=== PATIENT | female | born 1950 | race Caucasian/White ===

== ENCOUNTER 2018-07-01 12:12 | Inpatient (IN) ==
[2018-07-01 12:39] LABS: Basophils # 0.1 10*3/uL (0.0-0.2); Basophils % 0.7 % (0.0-0.8); Eosinophils # 0.3 10*3/uL (0.0-0.87); Eosinophils % 4.2 % (0.00-10.9); Hematocrit 40.6 VOL% (35.7-47.0); Hemoglobin 13.4 GM/DL (12.0-16.0); Immature Granulocytes % 0.3 %; Immature Granulocytes Absolute 0.02 #; Lymphocytes % 13.9 % (21.3-54.2); Mean Corpuscular Hemoglobin 31 PG (27-34); Mean Corpuscular Volume 93.8 FL (87-102); Mean Platelet Volume 10.2 FL (9.6-12.0); Monocytes # 0.5 10*3/uL (0.11-0.8); Monocytes % 6.6 % (1.7-12.7); Neutrophils # 5.3 10*3/uL (1.4-7.4); Neutrophils % 74.3 % (38.7-73.9); Platelet Count 149 T/CUMM (130-400); Red Blood Count 4.33 MC/CUMM (3.8-5.5); Red Cell Distribution Width 13.2 % (9.3-17.3); White Blood Count 7.2 T/CUMM (4-12)
[2018-07-01 12:48] LABS: PT Patient Result 10.8 SECS; Partial Thromboplastin Time 26.3 SECS (0-40)
[2018-07-01 13:11] LABS: Albumin 3.4 G/DL (3.4-5.0); CKMB % 5.1 %; Calcium 9.2 MG/DL (8.5-10.1); Osmolality,Calculated 292.3 MOS/KG (273-304); Potassium 4.7 MMOL/L (3.5-5.1); Total Protein 7.5 G/DL (6.4-8.3)
[2018-07-01] MEDS ORDERED: NITROGLYCERIN SL 0.4 MG TABLET SL PRN (13:44)
[2018-07-01] MEDS ORDERED: ASPIRIN 325 MG TABLET PO STA (13:44)
[2018-07-01] MEDS ORDERED: ENOXAPARIN 100 MG/ML SYRINGE SUBCUT STA (13:44)
[2018-07-01] MEDS ORDERED: NITROGLYCERIN 2% OINT 1 INCH/GM PACK TOP STA (13:58)
[2018-07-01] MEDS ORDERED: DOCUSATE SODIUM 100 MG CAPSULE PO PRN (15:37)
[2018-07-01] MEDS ORDERED: MAGNESIUM SULF RIDER 4 GM in PREMIX 1 EACH IV PRN (15:37)
[2018-07-01] MEDS ORDERED: DEXTROSE 50% 25 GM/50 ML VIAL IV PRN (15:37)
[2018-07-01] MEDS ORDERED: ACETAMINOPHEN 325 MG TABLET PO PRN (15:37)
[2018-07-01] MEDS ORDERED: ONDANSETRON 4 MG/2 ML VIAL IV PRN (15:37)
[2018-07-01] MEDS ORDERED: ZALEPLON 5 MG CAPSULE PO PRN (15:37)
[2018-07-01] MEDS ORDERED: GLUCAGON 1 MG VIAL IM PRN (15:37)
[2018-07-01] MEDS ORDERED: MAGNESIUM SULF RIDER 2 GM in PREMIX 1 EACH IV PRN ×2 (15:37→20:10)
[2018-07-01] MEDS ORDERED: MORPHINE 4 MG/1 ML VIAL IV PRN (15:37)
[2018-07-01] MEDS ORDERED: MAGNESIUM HYDROXIDE SUSP 30 ML UDCUP PO PRN (15:43)
[2018-07-01] MEDS ORDERED: diphenhydrAMINE CAP 25 MG CAPSULE PO PRN (15:44)
[2018-07-01] MEDS ORDERED: FUROSEMIDE 40 MG TABLET PO SCH (16:00)
[2018-07-01] MEDS ORDERED: POTASSIUM CHLORIDE RIDER 10 MEQ in PREMIX 1 EACH IV PRN (20:10)
[2018-07-01] MEDS ORDERED: Liraglutide [Victoza 3-Pak] 1.8 MG SUBCUT SCH (21:00)
[2018-07-01] MEDS: CARVEDILOL 12.5 MG TABLET PO SCH (21:20)
[2018-07-01] MEDS: FUROSEMIDE 40 MG/4 ML VIAL IV SCH (21:20)
[2018-07-01] MEDS: ASPIRIN EC 81 MG TABLET PO SCH (21:20)
[2018-07-01] MEDS: NITROGLYCERIN 2% OINT 1 INCH/GM PACK TOP SCH (21:21)
[2018-07-02] MEDS: NITROGLYCERIN 2% OINT 1 INCH/GM PACK TOP SCH ×5 (01:11→23:43)
[2018-07-02 02:14] LABS: Apearance,Urine CLEAR (Clear); Bilirubin,Urine Negative (Negative); Blood, Urine Moderate mg/dL (Negative); Glucose,Urine (UA) 50 mg/dL (Negative); Ketones,Urine Negative (Negative); Nitrite,Urine Negative (Negative); Protein,Urine 100 MG/DL; RBC,Urine 1 /HPF (0-4); Squamous Epithelial Cell,Urine Occasional /HPF (0-10); Urine Color Yellow (Yellow); Urine Specific Gravity 1.016 (1.001-1.035); Urine Urobilinogen < 2.0 EU/DL (0.2-1.0); WBC,Urine 2 /HPF (0-6)
[2018-07-02 05:51] LABS: Basophils # 0.1 10*3/uL (0.0-0.2); Basophils % 0.8 % (0.0-0.8); Eosinophils # 0.1 10*3/uL (0.0-0.87); Eosinophils % 1.3 % (0.00-10.9); Hemoglobin 12.2 GM/DL (12.0-16.0); Immature Granulocytes % 0.3 %; Immature Granulocytes Absolute 0.03 #; Lymphocytes # 0.9 10*3/uL (1.4-4.0); Lymphocytes % 10.2 % (21.3-54.2); Mean Corpuscular HGB Conc 33.9 GM/DL (32-36); Mean Corpuscular Hemoglobin 31 PG (27-34); Mean Corpuscular Volume 91.1 FL (87-102); Mean Platelet Volume 11.1 FL (9.6-12.0); Monocytes # 0.8 10*3/uL (0.11-0.8); Monocytes % 9.2 % (1.7-12.7); Neutrophils % 78.2 % (38.7-73.9); Platelet Count 147 T/CUMM (130-400); Red Blood Count 3.95 MC/CUMM (3.8-5.5); Red Cell Distribution Width 13.2 % (9.3-17.3)
[2018-07-02 06:01] LABS: INR 1.1; PT Patient Result 11.4 SECS
[2018-07-02 06:47] LABS: Albumin 3.2 G/DL (3.4-5.0); Bilirubin,Total 1.5 MG/DL (0.2-1.0); Calcium 8.8 MG/DL (8.5-10.1); Osmolality,Calculated 292.1 MOS/KG (273-304); Potassium 4.1 MMOL/L (3.5-5.1); Risk Ratio 1.97; Thyroid Stimulating Hormone 1.96 uIU/ml (0.358-3.74); Total Protein 6.7 G/DL (6.4-8.3); VLDL CHOLESTEROL 24.2 MG/DL
[2018-07-02 08:16] LABS: CKMB % 12.2 %
[2018-07-02] MEDS: ALLOPURINOL 100 MG TABLET PO SCH (09:01)
[2018-07-02] MEDS: CARVEDILOL 12.5 MG TABLET PO SCH ×2 (09:01→20:58)
[2018-07-02] MEDS: FUROSEMIDE 40 MG/4 ML VIAL IV SCH ×2 (09:01→20:49)
[2018-07-02] MEDS: ROSUVASTATIN 20 MG TABLET PO SCH (09:01)
[2018-07-02] MEDS: PANTOPRAZOLE 40 MG TABLET PO SCH (09:01)
[2018-07-02] MEDS: INSULIN GLARGINE 100 UNIT/ML SUBCUT SCH (09:06)
[2018-07-02] MEDS ORDERED: diphenhydrAMINE CAP 25 MG CAPSULE PO ONE (12:30)
[2018-07-02] MEDS ORDERED: DIAZEPAM 5 MG TABLET PO ONE (12:30)
[2018-07-02] MEDS ORDERED: MIDAZOLAM 2 MG/2 ML VIAL ONE (13:06)
[2018-07-02] MEDS ORDERED: fentaNYL 100 MCG/2 ML VIAL ONE (13:07)
[2018-07-02] MEDS ORDERED: SODIUM CHLORIDE 0.9% 1,000 ML IV SCH (14:00)
[2018-07-02] MEDS: LOSARTAN 25 MG TABLET PO SCH (14:46)
[2018-07-02] MEDS: INSULIN REGULAR 100 UNIT/ML SUBCUT SCH ×2 (16:15→20:50)
[2018-07-02] MEDS: ASPIRIN EC 81 MG TABLET PO SCH (20:49)
[2018-07-03] MEDS: NITROGLYCERIN 2% OINT 1 INCH/GM PACK TOP SCH ×2 (05:24→12:23)
[2018-07-03 05:35] LABS: Basophils % 0.4 % (0.0-0.8); Eosinophils # 0.1 10*3/uL (0.0-0.87); Eosinophils % 0.8 % (0.00-10.9); Hematocrit 35.7 VOL% (35.7-47.0); Hemoglobin 12.1 GM/DL (12.0-16.0); Immature Granulocytes % 0.4 %; Immature Granulocytes Absolute 0.04 #; Lymphocytes # 1.2 10*3/uL (1.4-4.0); Mean Corpuscular HGB Conc 33.9 GM/DL (32-36); Mean Corpuscular Hemoglobin 31 PG (27-34); Mean Corpuscular Volume 91.1 FL (87-102); Mean Platelet Volume 10.7 FL (9.6-12.0); Monocytes # 1.2 10*3/uL (0.11-0.8); Neutrophils # 6.9 10*3/uL (1.4-7.4); Neutrophils % 72.4 % (38.7-73.9); Platelet Count 151 T/CUMM (130-400); Red Blood Count 3.92 MC/CUMM (3.8-5.5); Red Cell Distribution Width 13.4 % (9.3-17.3); White Blood Count 9.5 T/CUMM (4-12)
[2018-07-03 06:13] LABS: Calcium 8.4 MG/DL (8.5-10.1); Osmolality,Calculated 284.7 MOS/KG (273-304); Potassium 3.7 MMOL/L (3.5-5.1)
[2018-07-03] MEDS: ROSUVASTATIN 20 MG TABLET PO SCH (08:44)
[2018-07-03] MEDS: PANTOPRAZOLE 40 MG TABLET PO SCH (08:44)
[2018-07-03] MEDS: ALLOPURINOL 100 MG TABLET PO SCH (08:44)
[2018-07-03] MEDS: FUROSEMIDE 40 MG/4 ML VIAL IV SCH (08:44)
[2018-07-03] MEDS: LOSARTAN 25 MG TABLET PO SCH (08:44)
[2018-07-03] MEDS: CARVEDILOL 12.5 MG TABLET PO SCH (08:44)
[2018-07-03] MEDS: INSULIN REGULAR 100 UNIT/ML SUBCUT SCH ×2 (08:45→12:13)
[2018-07-03] MEDS: INSULIN GLARGINE 100 UNIT/ML SUBCUT SCH (08:45)
[2018-07-03 12:20] VITALS: BP 132/77
== END 2018-07-03 14:45 | disposition home or self-care (01) | DRG 280 ==
LOC: N.EDINP 12:12 → N.ED 12:12 → N.TELES 16:22
PROVIDERS: ADMIT Internal Medicine Cardiovascular Disease; ATTEND Internal Medicine Cardiovascular Disease
PROC: CLCCHCL (ICD-10-PCS; 2018-07-02 13:45)

== ENCOUNTER 2019-05-23 13:50 | Observation (INO) ==
[2019-05-23 15:07] LABS: Basophils # 0.1 10*3/uL (0.0-0.2); Basophils % 0.7 % (0.0-0.8); Eosinophils # 0.1 10*3/uL (0.0-0.87); Eosinophils % 1.2 % (0.00-10.9); Hematocrit 43.2 VOL% (35.7-47.0); Hemoglobin 13.3 GM/DL (12.0-16.0); Immature Granulocytes % 0.4 %; Immature Granulocytes Absolute 0.03 #; Lymphocytes # 0.9 10*3/uL (1.4-4.0); Lymphocytes % 13.2 % (21.3-54.2); Mean Corpuscular HGB Conc 30.8 GM/DL (32-36); Mean Corpuscular Volume 80.1 FL (87-102); Mean Platelet Volume 10.8 FL (9.6-12.0); Monocytes % 8.4 % (1.7-12.7); Neutrophils % 76.1 % (38.7-73.9); Platelet Count 229 T/CUMM (130-400); Red Blood Count 5.39 MC/CUMM (3.8-5.5); Red Cell Distribution Width 22.5 % (9.3-17.3); White Blood Count 6.9 T/CUMM (4-12)
[2019-05-23 15:13] LABS: INR 1.7; PT Patient Result 17.9 SECS; Partial Thromboplastin Time 34.8 SECS (0-40)
[2019-05-23 15:34] LABS: Calcium 8.9 MG/DL (8.5-10.1); Osmolality,Calculated 296.1 MOS/KG (273-304)
[2019-05-23] MEDS ORDERED: ONDANSETRON 4 MG/2 ML VIAL IV PRN (15:51)
[2019-05-23] MEDS ORDERED: ACETAMINOPHEN 325 MG TABLET PO PRN (15:51)
[2019-05-23] MEDS ORDERED: PROMETHAZINE 25 MG/1 ML VIAL IM PRN (15:51)
[2019-05-23] MEDS ORDERED: DEXTROSE 5% NACL 0.9% 1,000 ML IV SCH (16:00)
[2019-05-23] MEDS ORDERED: POTASSIUM CHLORIDE 20 MEQ TABLET PO STA (16:16)
[2019-05-23] MEDS ORDERED: SODIUM CHLORIDE 0.9% 500 ML IV STA (16:16)
[2019-05-23 16:22] LABS: Hypochromasia Slight; Microcytosis Slight; Platelet Estimate Adequate
[2019-05-23] MEDS ORDERED: GLUCAGON 1 MG VIAL IM PRN (16:42)
[2019-05-23] MEDS ORDERED: DEXTROSE 50% 25 GM/50 ML VIAL IV PRN (16:42)
[2019-05-23] MEDS: CARVEDILOL 3.125 MG TABLET PO SCH (18:46)
[2019-05-23] MEDS: CYPROHEPTADINE 4 MG TABLET PO SCH ×2 (18:46→21:22)
[2019-05-23] MEDS: INSULIN LISPRO 100 UNIT/ML SUBCUT SCH ×2 (19:04→22:29)
[2019-05-23] MEDS ORDERED: ROSUVASTATIN 20 MG TABLET PO SCH (20:00)
[2019-05-23] MEDS: APIXABAN 5 MG TABLET PO SCH (21:22)
[2019-05-24] MEDS: INSULIN LISPRO 100 UNIT/ML SUBCUT SCH ×3 (01:50→11:31)
[2019-05-24 05:14] LABS: Basophils # 0.1 10*3/uL (0.0-0.2); Basophils % 0.9 % (0.0-0.8); Eosinophils # 0.4 10*3/uL (0.0-0.87); Eosinophils % 5.9 % (0.00-10.9); Hematocrit 40.2 VOL% (35.7-47.0); Hemoglobin 12.2 GM/DL (12.0-16.0); Immature Granulocytes % 0.2 %; Immature Granulocytes Absolute 0.01 #; Lymphocytes # 1.2 10*3/uL (1.4-4.0); Lymphocytes % 17.7 % (21.3-54.2); Mean Corpuscular HGB Conc 30.3 GM/DL (32-36); Mean Corpuscular Volume 82.2 FL (87-102); Mean Platelet Volume 11.1 FL (9.6-12.0); Monocytes % 9.4 % (1.7-12.7); NRBC # 0.02 10*3/uL; Neutrophils % 65.9 % (38.7-73.9); Platelet Count 202 T/CUMM (130-400); Red Blood Count 4.89 MC/CUMM (3.8-5.5); Red Cell Distribution Width 22.5 % (9.3-17.3); White Blood Count 6.5 T/CUMM (4-12)
[2019-05-24 05:42] LABS: Hypochromasia 1+; Microcytosis Slight; Platelet Estimate Adequate
[2019-05-24] MEDS: CARVEDILOL 3.125 MG TABLET PO SCH (06:02)
[2019-05-24 06:40] LABS: Albumin 2.5 G/DL (3.4-5.0); Bilirubin,Total 1.4 MG/DL (0.2-1.0); Osmolality,Calculated 302.4 MOS/KG (273-304); Total Protein 6.4 G/DL (6.4-8.3)
[2019-05-24] MEDS ORDERED: SODIUM CHLORIDE 0.9% 500 ML IV ONE (07:27)
[2019-05-24] MEDS: CYPROHEPTADINE 4 MG TABLET PO SCH ×2 (08:46→12:33)
[2019-05-24] MEDS: POTASSIUM CHLORIDE 20 MEQ TABLET PO SCH ×2 (08:46→12:33)
[2019-05-24] MEDS: APIXABAN 5 MG TABLET PO SCH (08:46)
[2019-05-24] MEDS ORDERED: ASPIRIN EC 81 MG TABLET PO SCH (09:00)
[2019-05-24] MEDS ORDERED: AMIODARONE 200 MG TABLET PO SCH (09:00)
[2019-05-24] MEDS ORDERED: APIXABAN 5 MG TABLET PO SCH (10:49)
[2019-05-24 14:07] VITALS: BP 110/68
[2019-05-25] MEDS ORDERED: RIVAROXABAN 15 MG TABLET PO SCH (08:00)
== END 2019-05-24 14:09 | disposition home or self-care (01) ==
LOC: EDBD → EDUNIT# → N.2E 13:50 → N.ED 13:50 → N.2E 18:09
PROVIDERS: ADMIT Family Medicine; ATTEND Family Medicine

== ENCOUNTER 2019-05-28 20:52 | Inpatient (IN) ==
[2019-05-28 22:03] LABS: Basophils % 0.5 % (0.0-0.8); Eosinophils # 0.1 10*3/uL (0.0-0.87); Eosinophils % 1.1 % (0.00-10.9); Hematocrit 39.1 VOL% (35.7-47.0); Hemoglobin 11.8 GM/DL (12.0-16.0); Immature Granulocytes % 0.8 %; Immature Granulocytes Absolute 0.05 #; Lymphocytes # 0.5 10*3/uL (1.4-4.0); Lymphocytes % 7.7 % (21.3-54.2); Mean Corpuscular HGB Conc 30.2 GM/DL (32-36); Mean Corpuscular Volume 80.6 FL (87-102); Mean Platelet Volume 11.3 FL (9.6-12.0); Monocytes % 7.1 % (1.7-12.7); NRBC # 0.11 10*3/uL; Neutrophils % 82.8 % (38.7-73.9); Platelet Count 144 T/CUMM (130-400); Red Blood Count 4.85 MC/CUMM (3.8-5.5); Red Cell Distribution Width 22.8 % (9.3-17.3); White Blood Count 6.4 T/CUMM (4-12)
[2019-05-28 22:06] LABS: Apearance,Urine CLOUDY (Clear); Bacteria,Urine Moderate /HPF (Few); Bilirubin,Urine Negative (Negative); Blood, Urine Moderate mg/dL (Negative); Glucose,Urine (UA) Negative (Negative); Ketones,Urine Negative (Negative); Nitrite,Urine Negative (Negative); Protein,Urine 100 MG/DL; RBC,Urine 37 /HPF (0-4); Squamous Epithelial Cell,Urine Occasional /HPF (0-10); Urine Color Amber (Yellow); Urine Specific Gravity 1.013 (1.001-1.035)
[2019-05-28 22:16] LABS: Alanine Aminotransferase 113 U/L (13-56); Albumin 2.6 G/DL (3.4-5.0); Alkaline Phosphatase 142 U/L (45-117); Aspartate Amino Transferase 277 U/L (0-37); Blood Urea Nitrogen 116 MG/DL (7-18); Calcium 7.9 MG/DL (8.5-10.1); Glucose 135 MG/DL (74-106); Osmolality,Calculated 300.7 MOS/KG (273-304); Total Protein 6.3 G/DL (6.4-8.3)
[2019-05-28 22:18] LABS: Troponin I 0.122 NG/ML (0.00-0.045)
[2019-05-28 22:21] LABS: INR 2.6; Partial Thromboplastin Time 45.8 SECS (0-40)
[2019-05-28 23:09] LABS: Platelet Estimate Adequate; Polychromasia Few
[2019-05-28] MEDS ORDERED: BISACODYL 5 MG TABLET PO PRN (23:32)
[2019-05-28] MEDS ORDERED: ACETAMINOPHEN 325 MG TABLET PO PRN (23:32)
[2019-05-28] MEDS ORDERED: GLUCAGON 1 MG VIAL IM PRN (23:32)
[2019-05-28] MEDS ORDERED: DEXTROSE 50% 25 GM/50 ML VIAL IV PRN (23:32)
[2019-05-29 00:13] LABS: HDL Cholesterol 17 MG/DL (40-60); Risk Ratio 2.94; Triglycerides 78 MG/DL (2-150); VLDL CHOLESTEROL 15.6 MG/DL
[2019-05-29 00:57] LABS: Hepatitis B Core IgM Quant 0.08 Index; Hepatitis B Surface Ag Quant < 0.10 Index; Hepatitis B Surface Ag Result Negative (Negative); Hepatitis C Virus Ab Quant 0.14 Index; Hepatitis C Virus Ab Result Negative (Negative)
[2019-05-29] MEDS: SODIUM CHLORIDE 0.9% 1,000 ML IV SCH ×3 (02:35→17:38)
[2019-05-29] MEDS: cefTRIAXone 1,000 MG in SYRINGE 1 EACH IV SCH ×3 (02:35→23:42)
[2019-05-29] MEDS: INSULIN REGULAR 100 UNIT/ML SUBCUT SCH ×4 (02:38→19:37)
[2019-05-29 05:09] LABS: Basophils % 0.5 % (0.0-0.8); Eosinophils # 0.1 10*3/uL (0.0-0.87); Eosinophils % 0.9 % (0.00-10.9); Hematocrit 38.1 VOL% (35.7-47.0); Hemoglobin 11.7 GM/DL (12.0-16.0); Immature Granulocytes % 0.9 %; Immature Granulocytes Absolute 0.06 #; Lymphocytes # 0.6 10*3/uL (1.4-4.0); Lymphocytes % 8.8 % (21.3-54.2); Mean Corpuscular HGB Conc 30.7 GM/DL (32-36); Mean Platelet Volume 11.2 FL (9.6-12.0); Monocytes % 7.7 % (1.7-12.7); NRBC # 0.12 10*3/uL; Neutrophils % 81.2 % (38.7-73.9); Platelet Count 120 T/CUMM (130-400); Red Blood Count 4.76 MC/CUMM (3.8-5.5); Red Cell Distribution Width 22.9 % (9.3-17.3); White Blood Count 6.3 T/CUMM (4-12)
[2019-05-29 05:25] LABS: Albumin 2.6 G/DL (3.4-5.0); Bilirubin,Total 1.6 MG/DL (0.2-1.0); Osmolality,Calculated 297.8 MOS/KG (273-304); Total Protein 6.2 G/DL (6.4-8.3)
[2019-05-29] MEDS ORDERED: SODIUM POLYSTYRENE SULFATE 15 GM/60 ML BOTTLE PO STA (07:10)
[2019-05-29] MEDS ORDERED: SODIUM CHLORIDE 0.9% 2,000 ML IV STA (07:31)
[2019-05-29 07:35] LABS: Free T4 (Free Thyroxine) 1.29 NG/DL (0.76-1.46)
[2019-05-29] MEDS: ASPIRIN EC 81 MG TABLET PO SCH (10:58)
[2019-05-29] MEDS: APIXABAN 2.5 MG TABLET PO SCH ×2 (10:58→20:29)
[2019-05-29] MEDS: INSULIN GLARGINE 100 UNIT/ML SUBCUT SCH (13:11)
[2019-05-29 15:25] LABS: Calcium 7.4 MG/DL (8.5-10.1); Osmolality,Calculated 301.7 MOS/KG (273-304)
[2019-05-29] MEDS ORDERED: SODIUM BICARBONATE 50 MEQ/50 ML VIAL IV ONE (15:56)
[2019-05-29] MEDS: SODIUM BICARB INJ 150 MEQ in STERILE WATER INJ 850 ML IV SCH (16:54)
[2019-05-29 17:04] LABS: ABG Base Excess 9.5 MMOL/L (-2.5-2.5); ABG HCO3 33.2 MMOL/L (20-26); ABG Oxygen Saturation 98.2 % (95-100); ABG PH 7.579 (7.35-7.45); ABG PO2 94.4 MM HG (80-95); ABG TCO2 28.3 MMOL/L (23-27)
[2019-05-29 18:38] LABS: Protein/Creatinine Ratio,Urine 8.8 RATIO
[2019-05-30] MEDS: SODIUM BICARB INJ 150 MEQ in STERILE WATER INJ 850 ML IV SCH ×4 (00:29→14:12)
[2019-05-30 01:17] LABS: ABG Base Excess 0.4 MMOL/L (-2.5-2.5); ABG HCO3 23.5 MMOL/L (20-26); ABG Oxygen Saturation 29.8 % (95-100); ABG PCO2 42.4 MM HG (35-48); ABG PH 7.389 (7.35-7.45); ABG TCO2 23.1 MMOL/L (23-27); Allen Test Positive; Pt O2 Delivery Device Room Air
[2019-05-30] MEDS: INSULIN REGULAR 100 UNIT/ML SUBCUT SCH ×4 (02:12→19:08)
[2019-05-30 03:35] LABS: ABG Base Excess -0.3 MMOL/L (-2.5-2.5); ABG HCO3 21.1 MMOL/L (20-26); ABG Oxygen Saturation 97.7 % (95-100); ABG PCO2 25.7 MM HG (35-48); ABG PH 7.532 (7.35-7.45); ABG PO2 103.7 MM HG (80-95); ABG TCO2 21.9 MMOL/L (23-27)
[2019-05-30 04:59] LABS: Basophils % 0.5 % (0.0-0.8); Eosinophils # 0.2 10*3/uL (0.0-0.87); Eosinophils % 2.4 % (0.00-10.9); Hemoglobin 11.4 GM/DL (12.0-16.0); Immature Granulocytes % 0.5 %; Immature Granulocytes Absolute 0.03 #; Lymphocytes # 0.8 10*3/uL (1.4-4.0); Mean Corpuscular HGB Conc 31.7 GM/DL (32-36); Mean Corpuscular Volume 78.6 FL (87-102); Monocytes % 10.1 % (1.7-12.7); NRBC # 0.25 10*3/uL; Neutrophils % 73.5 % (38.7-73.9); Platelet Count 111 T/CUMM (130-400); Red Blood Count 4.58 MC/CUMM (3.8-5.5); Red Cell Distribution Width 22.7 % (9.3-17.3); White Blood Count 6.2 T/CUMM (4-12)
[2019-05-30 05:19] LABS: Albumin 2.3 G/DL (3.4-5.0); Bilirubin,Total 1.5 MG/DL (0.2-1.0); Calcium 7.2 MG/DL (8.5-10.1); Osmolality,Calculated 298.7 MOS/KG (273-304); Total Protein 5.7 G/DL (6.4-8.3)
[2019-05-30] MEDS: INSULIN GLARGINE 100 UNIT/ML SUBCUT SCH (09:23)
[2019-05-30] MEDS: APIXABAN 2.5 MG TABLET PO SCH (09:25)
[2019-05-30] MEDS: ASPIRIN EC 81 MG TABLET PO SCH (09:25)
[2019-05-30] MEDS: cefTRIAXone 1,000 MG in SYRINGE 1 EACH IV SCH (12:19)
[2019-05-30] MEDS: SODIUM BICARB INJ 50 MEQ in SODIUM CHLORIDE 0.45% 1,000 ML IV SCH (16:47)
[2019-05-30] MEDS ORDERED: GLUCOSE GEL 15 GM TUBE PO PRN (19:42)
[2019-05-30] MEDS ORDERED: DEXTROSE 10% 250 ML BAG IV PRN (20:00)
[2019-05-31] MEDS: cefTRIAXone 1,000 MG in SYRINGE 1 EACH IV SCH ×2 (00:37→12:25)
[2019-05-31] MEDS: INSULIN REGULAR 100 UNIT/ML SUBCUT SCH ×5 (00:38→22:00)
[2019-05-31 03:16] LABS: Basophils % 0.4 % (0.0-0.8); Eosinophils # 0.2 10*3/uL (0.0-0.87); Eosinophils % 2.1 % (0.00-10.9); Hematocrit 35.7 VOL% (35.7-47.0); Hemoglobin 11.3 GM/DL (12.0-16.0); Immature Granulocytes % 0.5 %; Immature Granulocytes Absolute 0.04 #; Lymphocytes % 12.6 % (21.3-54.2); Mean Corpuscular HGB Conc 31.7 GM/DL (32-36); Mean Corpuscular Volume 77.4 FL (87-102); Monocytes % 10.5 % (1.7-12.7); NRBC # 0.18 10*3/uL; Neutrophils % 73.9 % (38.7-73.9); Platelet Count 114 T/CUMM (130-400); Red Blood Count 4.61 MC/CUMM (3.8-5.5); Red Cell Distribution Width 22.5 % (9.3-17.3); White Blood Count 7.7 T/CUMM (4-12)
[2019-05-31 03:43] LABS: Calcium 6.9 MG/DL (8.5-10.1); Osmolality,Calculated 294.8 MOS/KG (273-304)
[2019-05-31] MEDS: SODIUM BICARB INJ 50 MEQ in SODIUM CHLORIDE 0.45% 1,000 ML IV SCH ×3 (04:15→17:24)
[2019-05-31 04:19] LABS: Hypochromasia Slight; Platelet Estimate Decreased; Polychromasia Few
[2019-05-31 07:41] LABS: Random Urine Protein (Bench) 343 MG/DL (<11.9)
[2019-05-31] MEDS: ASPIRIN EC 81 MG TABLET PO SCH (09:05)
[2019-05-31] MEDS: AMIODARONE 200 MG TABLET PO SCH (09:05)
[2019-05-31] MEDS: ENOXAPARIN 30 MG/0.3 ML SYRINGE SUBCUT SCH (09:05)
[2019-05-31] MEDS: INSULIN GLARGINE 100 UNIT/ML SUBCUT SCH (09:05)
[2019-05-31] MEDS: CHOLESTYRAMINE 4 GM PACK PO SCH ×2 (12:25→21:54)
[2019-06-01] MEDS: cefTRIAXone 1,000 MG in SYRINGE 1 EACH IV SCH (01:28)
[2019-06-01] MEDS: SODIUM BICARB INJ 50 MEQ in SODIUM CHLORIDE 0.45% 1,000 ML IV SCH ×4 (01:34→18:35)
[2019-06-01] MEDS: INSULIN REGULAR 100 UNIT/ML SUBCUT SCH ×5 (03:08→22:14)
[2019-06-01 04:38] LABS: Basophils % 0.3 % (0.0-0.8); Eosinophils # 0.2 10*3/uL (0.0-0.87); Eosinophils % 2.8 % (0.00-10.9); Hematocrit 36.3 VOL% (35.7-47.0); Hemoglobin 11.7 GM/DL (12.0-16.0); Immature Granulocytes % 0.8 %; Immature Granulocytes Absolute 0.06 #; Lymphocytes # 1.1 10*3/uL (1.4-4.0); Mean Corpuscular HGB Conc 32.2 GM/DL (32-36); Mean Corpuscular Volume 75.6 FL (87-102); Monocytes % 9.1 % (1.7-12.7); Platelet Count 111 T/CUMM (130-400); Red Cell Distribution Width 22.7 % (9.3-17.3); White Blood Count 7.7 T/CUMM (4-12)
[2019-06-01 05:09] LABS: Albumin 1.9 G/DL (3.4-5.0); Bilirubin,Total 1.4 MG/DL (0.2-1.0); Osmolality,Calculated 291.1 MOS/KG (273-304); Total Protein 5.4 G/DL (6.4-8.3)
[2019-06-01 05:44] LABS: Albumin 1.9 G/DL (3.4-5.0); Bilirubin,Direct 0.56 MG/DL (0.0-0.20); Bilirubin,Indirect 0.4 MG/DL (0.0-1.0); Total Protein 5.5 G/DL (6.4-8.3)
[2019-06-01] MEDS: LEVOTHYROXINE 50 MCG TABLET PO SCH (07:02)
[2019-06-01] MEDS: INSULIN GLARGINE 100 UNIT/ML SUBCUT SCH (10:01)
[2019-06-01] MEDS: ONDANSETRON 4 MG/2 ML VIAL IV PRN (11:15)
[2019-06-01] MEDS: AMOXICILLIN 500 MG CAPSULE PO SCH (12:28)
[2019-06-01] MEDS: CHOLESTYRAMINE 4 GM PACK PO SCH ×2 (12:28→20:02)
[2019-06-01] MEDS: ENOXAPARIN 30 MG/0.3 ML SYRINGE SUBCUT SCH (12:28)
[2019-06-01] MEDS: ROSUVASTATIN 20 MG TABLET PO SCH (12:29)
[2019-06-01] MEDS: ASPIRIN EC 81 MG TABLET PO SCH (12:29)
[2019-06-01] MEDS: AMIODARONE 200 MG TABLET PO SCH (12:29)
[2019-06-01] MEDS: CLOPIDOGREL 75 MG TABLET PO SCH (12:29)
[2019-06-02] MEDS: INSULIN REGULAR 100 UNIT/ML SUBCUT SCH ×6 (01:51→22:00)
[2019-06-02 04:23] LABS: Basophils % 0.3 % (0.0-0.8); Eosinophils # 0.1 10*3/uL (0.0-0.87); Eosinophils % 1.4 % (0.00-10.9); Hematocrit 35.5 VOL% (35.7-47.0); Hemoglobin 11.4 GM/DL (12.0-16.0); Immature Granulocytes % 0.5 %; Immature Granulocytes Absolute 0.04 #; Lymphocytes # 0.9 10*3/uL (1.4-4.0); Lymphocytes % 12.7 % (21.3-54.2); Mean Corpuscular HGB Conc 32.1 GM/DL (32-36); Mean Corpuscular Volume 75.9 FL (87-102); Monocytes % 10.3 % (1.7-12.7); NRBC # 0.19 10*3/uL; Neutrophils % 74.8 % (38.7-73.9); Red Blood Count 4.68 MC/CUMM (3.8-5.5); Red Cell Distribution Width 22.7 % (9.3-17.3); White Blood Count 7.4 T/CUMM (4-12)
[2019-06-02 04:26] LABS: Platelet Count 92 T/CUMM (130-400)
[2019-06-02 04:46] LABS: Calcium 7.1 MG/DL (8.5-10.1); Osmolality,Calculated 292.1 MOS/KG (273-304)
[2019-06-02] MEDS: SODIUM BICARB INJ 50 MEQ in SODIUM CHLORIDE 0.45% 1,000 ML IV SCH ×3 (05:06→23:25)
[2019-06-02] MEDS: LEVOTHYROXINE 50 MCG TABLET PO SCH (06:27)
[2019-06-02] MEDS: INSULIN GLARGINE 100 UNIT/ML SUBCUT SCH (08:23)
[2019-06-02] MEDS: ROSUVASTATIN 20 MG TABLET PO SCH (09:02)
[2019-06-02] MEDS: APIXABAN 2.5 MG TABLET PO SCH ×2 (09:02→21:27)
[2019-06-02] MEDS: AMIODARONE 200 MG TABLET PO SCH (09:02)
[2019-06-02] MEDS: ASPIRIN EC 81 MG TABLET PO SCH (09:02)
[2019-06-02] MEDS: CHOLESTYRAMINE 4 GM PACK PO SCH ×2 (09:02→21:27)
[2019-06-02] MEDS: CLOPIDOGREL 75 MG TABLET PO SCH (09:02)
[2019-06-02] MEDS: AMOXICILLIN 500 MG CAPSULE PO SCH (12:08)
[2019-06-02] MEDS ORDERED: MIRTAZAPINE 15 MG TABLET PO SCH (21:00)
[2019-06-03] MEDS: INSULIN REGULAR 100 UNIT/ML SUBCUT SCH ×6 (01:20→21:01)
[2019-06-03] MEDS: SODIUM BICARB INJ 50 MEQ in SODIUM CHLORIDE 0.45% 1,000 ML IV SCH ×5 (03:00→23:51)
[2019-06-03 05:21] LABS: Basophils % 0.6 % (0.0-0.8); Eosinophils # 0.2 10*3/uL (0.0-0.87); Eosinophils % 3.2 % (0.00-10.9); Hematocrit 37.1 VOL% (35.7-47.0); Hemoglobin 11.7 GM/DL (12.0-16.0); Immature Granulocytes % 0.4 %; Immature Granulocytes Absolute 0.03 #; Lymphocytes % 13.7 % (21.3-54.2); Mean Corpuscular HGB Conc 31.5 GM/DL (32-36); Mean Corpuscular Volume 76.2 FL (87-102); Monocytes % 9.7 % (1.7-12.7); NRBC # 0.17 10*3/uL; Neutrophils % 72.4 % (38.7-73.9); Platelet Count 104 T/CUMM (130-400); Red Blood Count 4.87 MC/CUMM (3.8-5.5); Red Cell Distribution Width 22.6 % (9.3-17.3); White Blood Count 7.3 T/CUMM (4-12)
[2019-06-03 05:29] LABS: Calcium 7.3 MG/DL (8.5-10.1); Osmolality,Calculated 293.1 MOS/KG (273-304)
[2019-06-03 05:33] LABS: Calcium 7.3 MG/DL (8.5-10.1); Osmolality,Calculated 297.1 MOS/KG (273-304); Total Protein 5.4 G/DL (6.4-8.3)
[2019-06-03] MEDS: LEVOTHYROXINE 50 MCG TABLET PO SCH (06:21)
[2019-06-03 06:25] LABS: Anisocytosis 1+; Platelet Estimate Decreased
[2019-06-03] MEDS: AMIODARONE 200 MG TABLET PO SCH (08:30)
[2019-06-03] MEDS: ASPIRIN EC 81 MG TABLET PO SCH (08:30)
[2019-06-03] MEDS: APIXABAN 2.5 MG TABLET PO SCH ×2 (08:30→21:24)
[2019-06-03] MEDS: ROSUVASTATIN 20 MG TABLET PO SCH (08:30)
[2019-06-03] MEDS: CHOLESTYRAMINE 4 GM PACK PO SCH ×2 (08:30→21:24)
[2019-06-03] MEDS: CLOPIDOGREL 75 MG TABLET PO SCH (08:30)
[2019-06-03] MEDS: INSULIN GLARGINE 100 UNIT/ML SUBCUT SCH (08:31)
[2019-06-03] MEDS: FUROSEMIDE 40 MG/4 ML VIAL IV SCH (08:33)
[2019-06-03] MEDS: AMOXICILLIN 500 MG CAPSULE PO SCH (11:25)
[2019-06-04] MEDS: INSULIN REGULAR 100 UNIT/ML SUBCUT SCH ×6 (01:23→21:19)
[2019-06-04] MEDS: LEVOTHYROXINE 50 MCG TABLET PO SCH (06:13)
[2019-06-04 06:20] LABS: Basophils # 0.1 10*3/uL (0.0-0.2); Basophils % 0.7 % (0.0-0.8); Eosinophils # 0.3 10*3/uL (0.0-0.87); Eosinophils % 3.7 % (0.00-10.9); Hematocrit 38.2 VOL% (35.7-47.0); Hemoglobin 11.8 GM/DL (12.0-16.0); Immature Granulocytes % 0.4 %; Immature Granulocytes Absolute 0.03 #; Lymphocytes # 0.9 10*3/uL (1.4-4.0); Lymphocytes % 12.5 % (21.3-54.2); Mean Corpuscular HGB Conc 30.9 GM/DL (32-36); Monocytes % 9.2 % (1.7-12.7); NRBC # 0.21 10*3/uL; Neutrophils % 73.5 % (38.7-73.9); Platelet Count 114 T/CUMM (130-400); Red Cell Distribution Width 23.2 % (9.3-17.3); White Blood Count 7.5 T/CUMM (4-12)
[2019-06-04 06:43] LABS: Albumin 1.9 G/DL (3.4-5.0); Bilirubin,Total 0.9 MG/DL (0.2-1.0); Calcium 7.2 MG/DL (8.5-10.1); Osmolality,Calculated 297.9 MOS/KG (273-304); Total Protein 5.5 G/DL (6.4-8.3)
[2019-06-04 06:48] LABS: Acanthocytes 1+; Anisocytosis 1+; Ovalocytes 1+
[2019-06-04 06:49] LABS: Platelet Estimate Adequate
[2019-06-04] MEDS: ROSUVASTATIN 20 MG TABLET PO SCH (09:28)
[2019-06-04] MEDS: ASPIRIN EC 81 MG TABLET PO SCH (09:29)
[2019-06-04] MEDS: AMIODARONE 200 MG TABLET PO SCH (09:29)
[2019-06-04] MEDS: CLOPIDOGREL 75 MG TABLET PO SCH (09:29)
[2019-06-04] MEDS: APIXABAN 2.5 MG TABLET PO SCH ×2 (09:29→21:18)
[2019-06-04] MEDS: FUROSEMIDE 40 MG/4 ML VIAL IV SCH (09:30)
[2019-06-04] MEDS: CHOLESTYRAMINE 4 GM PACK PO SCH ×2 (09:34→21:18)
[2019-06-04] MEDS: SODIUM BICARB INJ 50 MEQ in SODIUM CHLORIDE 0.45% 1,000 ML IV SCH ×3 (09:55→21:20)
[2019-06-04] MEDS ORDERED: ZINC OXIDE PASTE 113 GM TUBE TOP PRN (10:46)
[2019-06-04] MEDS: AMOXICILLIN 500 MG CAPSULE PO SCH (12:14)
[2019-06-05] MEDS: LEVOTHYROXINE 50 MCG TABLET PO SCH (06:04)
[2019-06-05] MEDS: INSULIN REGULAR 100 UNIT/ML SUBCUT SCH ×4 (07:33→20:38)
[2019-06-05 08:50] LABS: Basophils # 0.1 10*3/uL (0.0-0.2); Basophils % 0.7 % (0.0-0.8); Eosinophils # 0.3 10*3/uL (0.0-0.87); Hemoglobin 12.3 GM/DL (12.0-16.0); Immature Granulocytes % 0.7 %; Immature Granulocytes Absolute 0.05 #; Lymphocytes # 0.9 10*3/uL (1.4-4.0); Lymphocytes % 12.2 % (21.3-54.2); Mean Corpuscular HGB Conc 30.8 GM/DL (32-36); Monocytes % 7.4 % (1.7-12.7); NRBC # 0.13 10*3/uL; Platelet Count 122 T/CUMM (130-400); Red Blood Count 5.13 MC/CUMM (3.8-5.5); Red Cell Distribution Width 23.5 % (9.3-17.3); White Blood Count 7.3 T/CUMM (4-12)
[2019-06-05] MEDS: FUROSEMIDE 40 MG/4 ML VIAL IV SCH (09:11)
[2019-06-05 09:13] LABS: Albumin 1.8 G/DL (3.4-5.0); Bilirubin,Total 0.9 MG/DL (0.2-1.0); Calcium 7.1 MG/DL (8.5-10.1); Osmolality,Calculated 298.1 MOS/KG (273-304); Total Protein 5.6 G/DL (6.4-8.3)
[2019-06-05 09:21] LABS: Platelet Estimate Adequate
[2019-06-05 09:22] LABS: Anisocytosis 1+; Poikilocytosis 1+
[2019-06-05] MEDS: CHOLESTYRAMINE 4 GM PACK PO SCH ×2 (09:58→21:27)
[2019-06-05] MEDS: CLOPIDOGREL 75 MG TABLET PO SCH (09:59)
[2019-06-05] MEDS: APIXABAN 2.5 MG TABLET PO SCH ×2 (09:59→21:27)
[2019-06-05] MEDS: ASPIRIN EC 81 MG TABLET PO SCH (09:59)
[2019-06-05] MEDS: AMIODARONE 200 MG TABLET PO SCH (09:59)
[2019-06-05] MEDS: ROSUVASTATIN 20 MG TABLET PO SCH (09:59)
[2019-06-05] MEDS: AMOXICILLIN 500 MG CAPSULE PO SCH (10:44)
[2019-06-05] MEDS: SILVER SULFADIAZINE 1% CREAM 25 GM TUBE TOP SCH ×2 (11:48→21:28)
[2019-06-05] MEDS: SODIUM BICARB INJ 50 MEQ in SODIUM CHLORIDE 0.45% 1,000 ML IV SCH (19:35)
[2019-06-06 04:21] LABS: Basophils % 0.4 % (0.0-0.8); Eosinophils # 0.2 10*3/uL (0.0-0.87); Eosinophils % 2.7 % (0.00-10.9); Hematocrit 37.5 VOL% (35.7-47.0); Hemoglobin 11.8 GM/DL (12.0-16.0); Immature Granulocytes % 0.6 %; Immature Granulocytes Absolute 0.05 #; Lymphocytes # 0.6 10*3/uL (1.4-4.0); Lymphocytes % 6.9 % (21.3-54.2); Mean Corpuscular HGB Conc 31.5 GM/DL (32-36); Mean Corpuscular Volume 76.8 FL (87-102); Monocytes % 7.3 % (1.7-12.7); NRBC # 0.08 10*3/uL; Neutrophils % 82.1 % (38.7-73.9); Platelet Count 100 T/CUMM (130-400); Red Blood Count 4.88 MC/CUMM (3.8-5.5); Red Cell Distribution Width 23.5 % (9.3-17.3); White Blood Count 7.9 T/CUMM (4-12)
[2019-06-06 04:39] LABS: Albumin 1.8 G/DL (3.4-5.0); Bilirubin,Total 1.1 MG/DL (0.2-1.0); Calcium 7.1 MG/DL (8.5-10.1); Osmolality,Calculated 296.1 MOS/KG (273-304); Total Protein 5.5 G/DL (6.4-8.3)
[2019-06-06 05:13] LABS: Anisocytosis 1+; Platelet Estimate Decreased
[2019-06-06] MEDS: LEVOTHYROXINE 50 MCG TABLET PO SCH (06:21)
[2019-06-06] MEDS: ASPIRIN EC 81 MG TABLET PO SCH (10:17)
[2019-06-06] MEDS: AMIODARONE 200 MG TABLET PO SCH (10:17)
[2019-06-06] MEDS: ROSUVASTATIN 20 MG TABLET PO SCH (10:17)
[2019-06-06] MEDS: AMOXICILLIN 500 MG CAPSULE PO SCH (10:17)
[2019-06-06] MEDS: FUROSEMIDE 40 MG/4 ML VIAL IV SCH (10:18)
[2019-06-06] MEDS: INSULIN REGULAR 100 UNIT/ML SUBCUT SCH ×4 (10:18→20:24)
[2019-06-06] MEDS: APIXABAN 2.5 MG TABLET PO SCH ×2 (10:18→20:24)
[2019-06-06] MEDS: CLOPIDOGREL 75 MG TABLET PO SCH (10:18)
[2019-06-06] MEDS: CHOLESTYRAMINE 4 GM PACK PO SCH ×2 (10:23→20:24)
[2019-06-06] MEDS: SILVER SULFADIAZINE 1% CREAM 25 GM TUBE TOP SCH ×2 (10:24→20:26)
[2019-06-07 05:15] LABS: Basophils % 0.5 % (0.0-0.8); Eosinophils # 0.2 10*3/uL (0.0-0.87); Eosinophils % 1.8 % (0.00-10.9); Hematocrit 38.5 VOL% (35.7-47.0); Hemoglobin 12.3 GM/DL (12.0-16.0); Immature Granulocytes % 0.7 %; Immature Granulocytes Absolute 0.06 #; Lymphocytes # 0.6 10*3/uL (1.4-4.0); Lymphocytes % 7.9 % (21.3-54.2); Mean Corpuscular HGB Conc 31.9 GM/DL (32-36); Mean Corpuscular Volume 77.3 FL (87-102); Monocytes % 7.4 % (1.7-12.7); NRBC # 0.06 10*3/uL; Neutrophils % 81.7 % (38.7-73.9); Platelet Count 99 T/CUMM (130-400); Red Blood Count 4.98 MC/CUMM (3.8-5.5); Red Cell Distribution Width 23.7 % (9.3-17.3); White Blood Count 8.1 T/CUMM (4-12)
[2019-06-07 05:20] LABS: Albumin 1.4 G/DL (3.4-5.0); Bilirubin,Total 0.9 MG/DL (0.2-1.0); Calcium 7.1 MG/DL (8.5-10.1); Osmolality,Calculated 288.8 MOS/KG (273-304); Total Protein 5.6 G/DL (6.4-8.3)
[2019-06-07 05:47] LABS: Burr Cells Slight; Hypochromasia 1+; Ovalocytes Slight; Platelet Estimate Decreased
[2019-06-07] MEDS: LEVOTHYROXINE 50 MCG TABLET PO SCH (06:01)
[2019-06-07] MEDS: INSULIN REGULAR 100 UNIT/ML SUBCUT SCH ×4 (08:39→20:43)
[2019-06-07] MEDS: FUROSEMIDE 40 MG/4 ML VIAL IV SCH ×2 (08:40→09:29)
[2019-06-07] MEDS: SILVER SULFADIAZINE 1% CREAM 25 GM TUBE TOP SCH ×2 (08:44→21:42)
[2019-06-07] MEDS: CHOLESTYRAMINE 4 GM PACK PO SCH ×2 (08:44→20:43)
[2019-06-07] MEDS: ASPIRIN EC 81 MG TABLET PO SCH (08:44)
[2019-06-07] MEDS: CLOPIDOGREL 75 MG TABLET PO SCH (08:44)
[2019-06-07] MEDS: APIXABAN 2.5 MG TABLET PO SCH ×2 (08:44→20:43)
[2019-06-07] MEDS: ROSUVASTATIN 20 MG TABLET PO SCH (08:44)
[2019-06-07] MEDS: AMIODARONE 200 MG TABLET PO SCH (08:44)
[2019-06-07] MEDS ORDERED: ceFAZolin 1,000 MG in SYRINGE 1 EACH IV ONE (12:14)
[2019-06-07] MEDS ORDERED: BUPIVACAINE MPF 0.25% /EPI 30 ML VIAL ONE (13:02)
[2019-06-07] MEDS ORDERED: LIDOCAINE 1%/EPI INJ 20 ML VIAL ONE (13:02)
[2019-06-07] MEDS ORDERED: HEPARIN 5,000 UNIT/1 ML VIAL ONE (13:02)
[2019-06-07 13:22] LABS: ABG Base Excess 0.4 MMOL/L (-2.5-2.5); ABG HCO3 24.8 MMOL/L (20-26); ABG Oxygen Saturation 96.4 % (95-100); ABG PH 7.437 (7.35-7.45); ABG TCO2 21.4 MMOL/L (23-27); Allen Test Positive
[2019-06-07] MEDS ORDERED: SODIUM CHLORIDE 0.9% 250 ML IV SCH (13:30)
[2019-06-07] MEDS ORDERED: HEPARIN 10,000 UNIT/10 ML VIAL IV SCH (16:00)
[2019-06-08 05:25] LABS: Basophils % 0.2 % (0.0-0.8); Eosinophils % 0.2 % (0.00-10.9); Hematocrit 34.4 VOL% (35.7-47.0); Hemoglobin 10.7 GM/DL (12.0-16.0); Immature Granulocytes % 0.6 %; Immature Granulocytes Absolute 0.07 #; Lymphocytes # 0.5 10*3/uL (1.4-4.0); Mean Corpuscular HGB Conc 31.1 GM/DL (32-36); Mean Corpuscular Volume 78.5 FL (87-102); Monocytes % 4.7 % (1.7-12.7); NRBC # 0.02 10*3/uL; Neutrophils % 90.3 % (38.7-73.9); Red Blood Count 4.38 MC/CUMM (3.8-5.5); Red Cell Distribution Width 23.7 % (9.3-17.3); White Blood Count 12.4 T/CUMM (4-12)
[2019-06-08 05:28] LABS: Platelet Count 39 T/CUMM (130-400)
[2019-06-08 05:45] LABS: Calcium 7.1 MG/DL (8.5-10.1); Osmolality,Calculated 291.7 MOS/KG (273-304)
[2019-06-08 05:56] LABS: Band Neutrophils 1 % (0-10); Hypochromasia 1+; Lymphocytes 2 % (20-55); Platelet Estimate Decreased; Segmented Neutrophils 94 % (50-85); Total Cells Counted 100
[2019-06-08 05:57] LABS: Burr Cells Slight; Ovalocytes Slight
[2019-06-08 05:59] LABS: Albumin 1.7 G/DL (3.4-5.0); Bilirubin,Total 1.9 MG/DL (0.2-1.0); Calcium 7.1 MG/DL (8.5-10.1); Osmolality,Calculated 289.5 MOS/KG (273-304); Total Protein 5.1 G/DL (6.4-8.3)
[2019-06-08] MEDS: LEVOTHYROXINE 50 MCG TABLET PO SCH (06:05)
[2019-06-08] MEDS ORDERED: DEXTROSE 50% 25 GM/50 ML VIAL IV PRN (07:37)
[2019-06-08] MEDS: INSULIN REGULAR 100 UNIT/ML SUBCUT SCH ×4 (09:37→20:47)
[2019-06-08] MEDS: FUROSEMIDE 40 MG/4 ML VIAL IV SCH (10:53)
[2019-06-08 11:38] LABS: Basophils % 0.3 % (0.0-0.8); Eosinophils % 0.4 % (0.00-10.9); Hematocrit 33.3 VOL% (35.7-47.0); Hemoglobin 10.1 GM/DL (12.0-16.0); Immature Granulocytes % 0.5 %; Immature Granulocytes Absolute 0.05 #; Lymphocytes # 0.3 10*3/uL (1.4-4.0); Lymphocytes % 3.5 % (21.3-54.2); Mean Corpuscular HGB Conc 30.3 GM/DL (32-36); Mean Corpuscular Volume 79.9 FL (87-102); Monocytes % 1.2 % (1.7-12.7); NRBC # 0.02 10*3/uL; Neutrophils % 94.1 % (38.7-73.9); Red Blood Count 4.17 MC/CUMM (3.8-5.5); Red Cell Distribution Width 23.9 % (9.3-17.3); White Blood Count 9.4 T/CUMM (4-12)
[2019-06-08 11:50] LABS: Platelet Count 21 T/CUMM (130-400)
[2019-06-08 12:07] LABS: Anisocytosis 3+; Band Neutrophils 14 % (0-10); Lymphocytes 1 % (20-55); Macrocytosis 1+; Platelet Estimate Decreased; Poikilocytosis 1+; Segmented Neutrophils 85 % (50-85); Total Cells Counted 100
[2019-06-08 12:08] LABS: Acanthocytes 1+
[2019-06-08] MEDS: APIXABAN 2.5 MG TABLET PO SCH (12:45)
[2019-06-08] MEDS: ASPIRIN EC 81 MG TABLET PO SCH (12:45)
[2019-06-08] MEDS: CLOPIDOGREL 75 MG TABLET PO SCH (12:46)
[2019-06-08] MEDS: ROSUVASTATIN 20 MG TABLET PO SCH (13:10)
[2019-06-08] MEDS: CHOLESTYRAMINE 4 GM PACK PO SCH ×2 (13:10→20:49)
[2019-06-08] MEDS: AMIODARONE 200 MG TABLET PO SCH (13:10)
[2019-06-08] MEDS: SILVER SULFADIAZINE 1% CREAM 25 GM TUBE TOP SCH ×2 (13:11→20:49)
[2019-06-08 19:29] LABS: INR 1.5; PT Patient Result 16.6 SECS
[2019-06-08 19:32] LABS: Partial Thromboplastin Time 41.6 SECS (0-40)
[2019-06-09 05:03] LABS: Basophils % 0.4 % (0.0-0.8); Eosinophils % 0.3 % (0.00-10.9); Hematocrit 34.2 VOL% (35.7-47.0); Hemoglobin 10.2 GM/DL (12.0-16.0); Immature Granulocytes % 0.6 %; Immature Granulocytes Absolute 0.06 #; Lymphocytes # 0.6 10*3/uL (1.4-4.0); Lymphocytes % 6.5 % (21.3-54.2); Mean Corpuscular HGB Conc 29.8 GM/DL (32-36); Mean Corpuscular Volume 80.3 FL (87-102); Monocytes % 6.5 % (1.7-12.7); NRBC # 0.02 10*3/uL; Neutrophils % 85.7 % (38.7-73.9); Red Blood Count 4.26 MC/CUMM (3.8-5.5); Red Cell Distribution Width 24.1 % (9.3-17.3); White Blood Count 9.5 T/CUMM (4-12)
[2019-06-09 05:07] LABS: Platelet Count 29 T/CUMM (130-400)
[2019-06-09 05:13] LABS: INR 1.5; PT Patient Result 16.3 SECS; Partial Thromboplastin Time 39.1 SECS (0-40)
[2019-06-09 05:31] LABS: Calcium 7.5 MG/DL (8.5-10.1); Calcium 7.6 MG/DL (8.5-10.1); Osmolality,Calculated 287.2 MOS/KG (273-304); Osmolality,Calculated 289.2 MOS/KG (273-304)
[2019-06-09 05:52] LABS: Burr Cells 2+; Hypochromasia 2+; Ovalocytes 2+; Platelet Estimate Decreased
[2019-06-09 05:53] LABS: Schistocytes Few
[2019-06-09] MEDS: LEVOTHYROXINE 50 MCG TABLET PO SCH (06:14)
[2019-06-09] MEDS: INSULIN REGULAR 100 UNIT/ML SUBCUT SCH ×4 (09:37→22:10)
[2019-06-09] MEDS: AMIODARONE 200 MG TABLET PO SCH (14:10)
[2019-06-09] MEDS: ROSUVASTATIN 20 MG TABLET PO SCH (14:10)
[2019-06-09] MEDS: CHOLESTYRAMINE 4 GM PACK PO SCH ×2 (14:11→22:11)
[2019-06-10 04:39] LABS: Basophils # 0.1 10*3/uL (0.0-0.2); Basophils % 0.5 % (0.0-0.8); Hematocrit 34.3 VOL% (35.7-47.0); Hemoglobin 10.1 GM/DL (12.0-16.0); Immature Granulocytes % 0.5 %; Immature Granulocytes Absolute 0.05 #; Lymphocytes # 0.6 10*3/uL (1.4-4.0); Lymphocytes % 5.9 % (21.3-54.2); Mean Corpuscular HGB Conc 29.4 GM/DL (32-36); Mean Corpuscular Volume 81.7 FL (87-102); Monocytes % 5.5 % (1.7-12.7); NRBC # 0.04 10*3/uL; Neutrophils % 87.6 % (38.7-73.9); Red Cell Distribution Width 24.3 % (9.3-17.3)
[2019-06-10 04:48] LABS: Calcium 7.8 MG/DL (8.5-10.1); Osmolality,Calculated 283.1 MOS/KG (273-304)
[2019-06-10 04:53] LABS: Platelet Count 21 T/CUMM (130-400)
[2019-06-10 05:08] LABS: Albumin 1.7 G/DL (3.4-5.0); Bilirubin,Direct 0.49 MG/DL (0.0-0.20); Bilirubin,Indirect 0.4 MG/DL (0.0-1.0); Bilirubin,Total 0.9 MG/DL (0.2-1.0); Total Protein 4.8 G/DL (6.4-8.3)
[2019-06-10 05:18] LABS: Calcium 7.9 MG/DL (8.5-10.1)
[2019-06-10] MEDS: LEVOTHYROXINE 50 MCG TABLET PO SCH (06:36)
[2019-06-10] MEDS: INSULIN REGULAR 100 UNIT/ML SUBCUT SCH ×4 (07:49→21:30)
[2019-06-10] MEDS: ROSUVASTATIN 20 MG TABLET PO SCH (08:28)
[2019-06-10] MEDS: CHOLESTYRAMINE 4 GM PACK PO SCH ×2 (08:29→21:29)
[2019-06-10] MEDS: AMIODARONE 200 MG TABLET PO SCH (08:29)
[2019-06-10] MEDS ORDERED: PHYTONADIONE 10 MG/1 ML AMP SUBCUT ONE (11:28)
[2019-06-10] MEDS ORDERED: SODIUM CHLORIDE 0.9% 1,000 ML IV PRN ×2 (11:28→11:29)
[2019-06-10] MEDS ORDERED: ACETAMINOPHEN 325 MG TABLET PO PRN (11:29)
[2019-06-10] MEDS ORDERED: diphenhydrAMINE CAP 25 MG CAPSULE PO PRN (11:29)
[2019-06-10 19:11] LABS: HIT Interpretation Negative (Negative)
[2019-06-11] MEDS: ONDANSETRON 4 MG/2 ML VIAL IV PRN (04:06)
[2019-06-11] MEDS: LEVOTHYROXINE 50 MCG TABLET PO SCH (06:45)
[2019-06-11 08:46] LABS: Basophils % 0.2 % (0.0-0.8); Hematocrit 36.8 VOL% (35.7-47.0); Hemoglobin 11.3 GM/DL (12.0-16.0); Immature Granulocytes % 0.6 %; Immature Granulocytes Absolute 0.08 #; Lymphocytes # 0.6 10*3/uL (1.4-4.0); Mean Corpuscular HGB Conc 30.7 GM/DL (32-36); Mean Corpuscular Volume 80.5 FL (87-102); Monocytes % 5.2 % (1.7-12.7); NRBC # 0.06 10*3/uL; Red Blood Count 4.57 MC/CUMM (3.8-5.5); White Blood Count 12.3 T/CUMM (4-12)
[2019-06-11 08:50] LABS: INR 1.3; PT Patient Result 13.9 SECS; Partial Thromboplastin Time 31.5 SECS (0-40)
[2019-06-11 08:58] LABS: Platelet Count 92 T/CUMM (130-400)
[2019-06-11] MEDS: INSULIN REGULAR 100 UNIT/ML SUBCUT SCH ×3 (09:14→15:51)
[2019-06-11] MEDS: CHOLESTYRAMINE 4 GM PACK PO SCH ×2 (09:14→20:37)
[2019-06-11] MEDS: AMIODARONE 200 MG TABLET PO SCH (09:14)
[2019-06-11] MEDS: ROSUVASTATIN 20 MG TABLET PO SCH (09:14)
[2019-06-11 10:08] LABS: Osmolality,Calculated 283.5 MOS/KG (273-304)
[2019-06-12] MEDS: INSULIN REGULAR 100 UNIT/ML SUBCUT SCH ×5 (00:17→21:33)
[2019-06-12 07:40] LABS: Basophils % 0.1 % (0.0-0.8); Hematocrit 36.3 VOL% (35.7-47.0); Hemoglobin 11.1 GM/DL (12.0-16.0); Immature Granulocytes % 4.9 %; Immature Granulocytes Absolute 0.76 #; Lymphocytes # 0.6 10*3/uL (1.4-4.0); Lymphocytes % 3.6 % (21.3-54.2); Mean Corpuscular HGB Conc 30.6 GM/DL (32-36); Mean Corpuscular Volume 80.7 FL (87-102); Monocytes % 5.3 % (1.7-12.7); NRBC # 0.03 10*3/uL; Neutrophils % 86.1 % (38.7-73.9); Platelet Count 51 T/CUMM (130-400); Red Cell Distribution Width 25.4 % (9.3-17.3); White Blood Count 15.6 T/CUMM (4-12)
[2019-06-12 08:05] LABS: Band Neutrophils 1 % (0-10); Lymphocytes 4 % (20-55); Platelet Estimate Decreased; Segmented Neutrophils 93 % (50-85); Total Cells Counted 100
[2019-06-12] MEDS: LEVOTHYROXINE 50 MCG TABLET PO SCH (08:05)
[2019-06-12] MEDS: CHOLESTYRAMINE 4 GM PACK PO SCH ×2 (09:42→20:47)
[2019-06-12] MEDS: AMIODARONE 200 MG TABLET PO SCH (09:42)
[2019-06-12] MEDS: ROSUVASTATIN 20 MG TABLET PO SCH (09:42)
[2019-06-13 05:50] LABS: Basophils % 0.2 % (0.0-0.8); Hematocrit 35.9 VOL% (35.7-47.0); Hemoglobin 10.7 GM/DL (12.0-16.0); Immature Granulocytes % 2.1 %; Immature Granulocytes Absolute 0.25 #; Lymphocytes # 0.6 10*3/uL (1.4-4.0); Lymphocytes % 5.2 % (21.3-54.2); Mean Corpuscular HGB Conc 29.8 GM/DL (32-36); Mean Corpuscular Volume 81.8 FL (87-102); Monocytes % 6.6 % (1.7-12.7); NRBC # 0.04 10*3/uL; Neutrophils % 85.9 % (38.7-73.9); Platelet Count 56 T/CUMM (130-400); Red Blood Count 4.39 MC/CUMM (3.8-5.5); Red Cell Distribution Width 25.3 % (9.3-17.3); White Blood Count 11.7 T/CUMM (4-12)
[2019-06-13 06:07] LABS: Calcium 8.4 MG/DL (8.5-10.1); Osmolality,Calculated 282.4 MOS/KG (273-304)
[2019-06-13 06:09] LABS: Band Neutrophils 4 % (0-10); Lymphocytes 1 % (20-55); Nucleated Red Blood Cells 1 (0-5); Platelet Estimate Decreased; Segmented Neutrophils 93 % (50-85); Total Cells Counted 100
[2019-06-13 06:10] LABS: Hypochromasia 1+
[2019-06-13] MEDS: LEVOTHYROXINE 50 MCG TABLET PO SCH (06:30)
[2019-06-13] MEDS: AMIODARONE 200 MG TABLET PO SCH (09:06)
[2019-06-13] MEDS: INSULIN REGULAR 100 UNIT/ML SUBCUT SCH ×4 (09:06→21:18)
[2019-06-13] MEDS: CHOLESTYRAMINE 4 GM PACK PO SCH ×2 (09:07→21:18)
[2019-06-13] MEDS: ROSUVASTATIN 20 MG TABLET PO SCH (09:07)
[2019-06-13] MEDS: CYPROHEPTADINE 4 MG TABLET PO SCH ×3 (14:03→21:18)
[2019-06-13] MEDS ORDERED: ceFAZolin 1,000 MG in SYRINGE 1 EACH IV ONE (14:44)
[2019-06-14 04:33] LABS: Basophils % 0.1 % (0.0-0.8); Hematocrit 34.9 VOL% (35.7-47.0); Hemoglobin 10.7 GM/DL (12.0-16.0); Immature Granulocytes % 0.4 %; Immature Granulocytes Absolute 0.04 #; Lymphocytes # 0.6 10*3/uL (1.4-4.0); Lymphocytes % 6.5 % (21.3-54.2); Mean Corpuscular HGB Conc 30.7 GM/DL (32-36); Mean Corpuscular Volume 80.4 FL (87-102); Monocytes % 7.7 % (1.7-12.7); NRBC # 0.06 10*3/uL; Neutrophils % 85.3 % (38.7-73.9); Platelet Count 64 T/CUMM (130-400); Red Blood Count 4.34 MC/CUMM (3.8-5.5); Red Cell Distribution Width 25.8 % (9.3-17.3); White Blood Count 9.8 T/CUMM (4-12)
[2019-06-14 04:55] LABS: Band Neutrophils 2 % (0-10); Hypochromasia 1+; Lymphocytes 5 % (20-55); Nucleated Red Blood Cells 2 (0-5); Platelet Estimate Decreased; Segmented Neutrophils 91 % (50-85); Total Cells Counted 100
[2019-06-14 05:02] LABS: Calcium 8.3 MG/DL (8.5-10.1); Osmolality,Calculated 283.4 MOS/KG (273-304)
[2019-06-14] MEDS: LEVOTHYROXINE 50 MCG TABLET PO SCH (06:18)
[2019-06-14] MEDS: CYPROHEPTADINE 4 MG TABLET PO SCH ×4 (09:04→20:59)
[2019-06-14] MEDS: CHOLESTYRAMINE 4 GM PACK PO SCH ×2 (09:04→20:58)
[2019-06-14] MEDS: ROSUVASTATIN 20 MG TABLET PO SCH (09:04)
[2019-06-14] MEDS: INSULIN REGULAR 100 UNIT/ML SUBCUT SCH ×4 (09:04→21:03)
[2019-06-14] MEDS: AMIODARONE 200 MG TABLET PO SCH (09:04)
[2019-06-14] MEDS ORDERED: BUPIVACAINE 0.25% /EPI 10 ML VIAL ONE (10:48)
[2019-06-14] MEDS ORDERED: HEPARIN 5,000 UNIT/1 ML VIAL ONE (10:48)
[2019-06-14] MEDS ORDERED: LIDOCAINE 1%/EPI INJ 20 ML VIAL ONE (10:48)
[2019-06-14] MEDS ORDERED: SODIUM CHLORIDE 0.9% 250 ML IV SCH (11:30)
[2019-06-14] MEDS ORDERED: ceFAZolin 1,000 MG VIAL ONE (11:55)
[2019-06-14] MEDS ORDERED: MIDAZOLAM 2 MG/2 ML VIAL ONE (12:20)
[2019-06-14] MEDS ORDERED: KETAMINE 500 MG/10 ML VIAL ONE (12:20)
[2019-06-14] MEDS ORDERED: METOPROLOL TARTRATE 5 MG/5 ML VIAL IV PRN (15:16)
[2019-06-14] MEDS ORDERED: ALBUMIN 25% 25 GM in PREMIX 1 EACH IV ONE ×2 (16:30→17:00)
[2019-06-15 03:52] LABS: Basophils % 0.2 % (0.0-0.8); Hematocrit 33.9 VOL% (35.7-47.0); Hemoglobin 10.1 GM/DL (12.0-16.0); Immature Granulocytes % 0.6 %; Immature Granulocytes Absolute 0.05 #; Lymphocytes # 0.6 10*3/uL (1.4-4.0); Lymphocytes % 6.8 % (21.3-54.2); Mean Corpuscular HGB Conc 29.8 GM/DL (32-36); Mean Corpuscular Volume 81.7 FL (87-102); Monocytes % 6.7 % (1.7-12.7); NRBC # 0.03 10*3/uL; Neutrophils % 85.7 % (38.7-73.9); Platelet Count 45 T/CUMM (130-400); Red Blood Count 4.15 MC/CUMM (3.8-5.5); Red Cell Distribution Width 25.7 % (9.3-17.3); White Blood Count 8.7 T/CUMM (4-12)
[2019-06-15 04:16] LABS: Albumin 1.3 G/DL (3.4-5.0); Bilirubin,Total 1.2 MG/DL (0.2-1.0); Calcium 8.1 MG/DL (8.5-10.1); Osmolality,Calculated 278.2 MOS/KG (273-304); Total Protein 5.3 G/DL (6.4-8.3)
[2019-06-15 04:30] LABS: Band Neutrophils 1 % (0-10); Hypochromasia Slight; Lymphocytes 3 % (20-55); Ovalocytes Slight; Platelet Estimate Decreased; Segmented Neutrophils 91 % (50-85); Total Cells Counted 100
[2019-06-15] MEDS: LEVOTHYROXINE 50 MCG TABLET PO SCH (06:16)
[2019-06-15] MEDS: ROSUVASTATIN 20 MG TABLET PO SCH (09:26)
[2019-06-15] MEDS: CYPROHEPTADINE 4 MG TABLET PO SCH ×4 (09:26→21:06)
[2019-06-15] MEDS: AMIODARONE 200 MG TABLET PO SCH (09:26)
[2019-06-15] MEDS: INSULIN REGULAR 100 UNIT/ML SUBCUT SCH ×4 (09:30→21:06)
[2019-06-15] MEDS: CHOLESTYRAMINE 4 GM PACK PO SCH ×2 (10:10→21:06)
[2019-06-16 04:01] LABS: Basophils % 0.3 % (0.0-0.8); Hematocrit 33.5 VOL% (35.7-47.0); Hemoglobin 10.1 GM/DL (12.0-16.0); Immature Granulocytes % 0.8 %; Immature Granulocytes Absolute 0.05 #; Lymphocytes # 0.4 10*3/uL (1.4-4.0); Lymphocytes % 6.1 % (21.3-54.2); Mean Corpuscular HGB Conc 30.1 GM/DL (32-36); Mean Corpuscular Volume 80.9 FL (87-102); Monocytes % 7.3 % (1.7-12.7); NRBC # 0.03 10*3/uL; Neutrophils % 85.5 % (38.7-73.9); Red Blood Count 4.14 MC/CUMM (3.8-5.5); Red Cell Distribution Width 25.6 % (9.3-17.3); White Blood Count 5.9 T/CUMM (4-12)
[2019-06-16 04:02] LABS: Platelet Count 52 T/CUMM (130-400)
[2019-06-16 04:26] LABS: Calcium 8.4 MG/DL (8.5-10.1); Osmolality,Calculated 282.1 MOS/KG (273-304)
[2019-06-16 04:33] LABS: Band Neutrophils 3 % (0-10); Lymphocytes 7 % (20-55); Metamyelocytes 1 %; Segmented Neutrophils 83 % (50-85)
[2019-06-16 04:35] LABS: Hypochromasia Slight; Ovalocytes 2+; Platelet Estimate Decreased
[2019-06-16 04:36] LABS: Burr Cells 1+
[2019-06-16 04:37] LABS: Total Cells Counted 100
[2019-06-16 04:43] LABS: Albumin 1.3 G/DL (3.4-5.0); Bilirubin,Total 0.9 MG/DL (0.2-1.0); Calcium 8.1 MG/DL (8.5-10.1); Osmolality,Calculated 281.1 MOS/KG (273-304); Total Protein 5.4 G/DL (6.4-8.3)
[2019-06-16] MEDS: LEVOTHYROXINE 50 MCG TABLET PO SCH (06:14)
[2019-06-16] MEDS: INSULIN REGULAR 100 UNIT/ML SUBCUT SCH ×3 (09:54→18:15)
[2019-06-16] MEDS: CHOLESTYRAMINE 4 GM PACK PO SCH (10:00)
[2019-06-16] MEDS: AMIODARONE 200 MG TABLET PO SCH (10:00)
[2019-06-16] MEDS: CYPROHEPTADINE 4 MG TABLET PO SCH ×3 (10:00→18:15)
[2019-06-16] MEDS: ROSUVASTATIN 20 MG TABLET PO SCH (10:00)
[2019-06-16 15:45] VITALS: BP 92/49
[2019-06-16 16:39] LABS: ABG HCO3 12.9 MMOL/L (20-26); ABG PCO2 42.6 MM HG (35-48); ABG PO2 86.9 MM HG (80-95); ABG TCO2 13.2 MMOL/L (23-27); Allen Test Positive; Pt O2 Delivery Device Ventilator
[2019-06-16 16:41] LABS: Alanine Aminotransferase 21 U/L (13-56); Albumin 1.2 G/DL (3.4-5.0); Alkaline Phosphatase 164 U/L (45-117); Aspartate Amino Transferase 87 U/L (0-37); Blood Urea Nitrogen 35 MG/DL (7-18); Calcium 8.4 MG/DL (8.5-10.1); Glucose 421 MG/DL (74-106); Total Protein 4.6 G/DL (6.4-8.3)
[2019-06-16 16:41] LABS: ABG PH 7.121 (7.35-7.45)
[2019-06-16] MEDS ORDERED: CALCIUM CHLORIDE 1,000 MG/10 ML SYRINGE IV ONE ×2 (16:41→18:01)
[2019-06-16] MEDS ORDERED: SODIUM BICARBONATE 50 MEQ/50 ML SYRINGE IV ONE ×2 (16:41→18:01)
[2019-06-16] MEDS ORDERED: EPINEPHrine 1 MG/ML VIAL ONE (16:41)
[2019-06-16 16:52] LABS: INR 1.6; PT Patient Result 17.1 SECS
[2019-06-16 17:05] LABS: Basophils % 0.3 % (0.0-0.8); Eosinophils % 0.1 % (0.00-10.9); Hematocrit 31.3 VOL% (35.7-47.0); Hemoglobin 9.2 GM/DL (12.0-16.0); Immature Granulocytes % 2.4 %; Immature Granulocytes Absolute 0.19 #; Lymphocytes # 2.8 10*3/uL (1.4-4.0); Mean Corpuscular HGB Conc 29.4 GM/DL (32-36); Mean Corpuscular Volume 84.4 FL (87-102); Monocytes % 6.9 % (1.7-12.7); NRBC # 0.23 10*3/uL; Neutrophils % 55.3 % (38.7-73.9); Platelet Count 43 T/CUMM (130-400); Red Blood Count 3.71 MC/CUMM (3.8-5.5); Red Cell Distribution Width 25.5 % (9.3-17.3)
[2019-06-16] MEDS ORDERED: EPINEPHrine 1 MG/10 ML SYRINGE ONE (18:01)
[2019-06-16 18:11] LABS: Lymphocytes 30 % (20-55); Macrocytosis Slight; Nucleated Red Blood Cells 3 (0-5); Polychromasia Few; Segmented Neutrophils 67 % (50-85); Total Cells Counted 100
[2019-06-16 18:12] LABS: Burr Cells 1+; Elliptocytes Few; Platelet Estimate Decreased
== END 2019-06-16 17:17 | disposition expired | DRG 673 ==
LOC: EDUNIT# → EDBD → N.ED 20:52 → N.EDINP 23:32 → SUATTDRO 23:32 → N.EDINP 05-29 08:07 → N.4E 05-29 08:08 → N.ICU 05-29 17:19 → N.TELEN 05-31 10:19 → N.TELES 06-03 14:16 → N.CC 06-16 16:24
PROVIDERS: ADMIT Internal Medicine; ATTEND Emergency Medicine